=== PATIENT | male | born 1955 | race African-American/Black ===

== ENCOUNTER 2017-12-07 13:22 | Outpatient (RCR) | payer OTHER ==
[~2017-12-07 13:22] MED LIST: FLEXERIL; HYDROCODONE/APAP; PROSTATE PILL
== END 2018-03-07 | disposition home or self-care (01) ==
LOC: WSOH
DX: M25.512 Pain in left shoulder (principal); M25.511 Pain in right shoulder; X50.0XXA Overexertion from strenuous movement or load, initial encounter; Y92.59 Other trade areas as the place of occurrence of the external cause; Y99.0 Civilian activity done for income or pay